=== PATIENT | female | born 1995 ===

== ENCOUNTER 2020-06-10 14:05 | Inpatient (IN) ==
[2020-06-10] MEDS ORDERED: MEPERIDINE 50 MG/1 ML VIAL IV PRN (15:31)
[2020-06-10] MEDS ORDERED: TERBUTALINE 1 MG/1 ML VIAL SUBCUT PRN (15:31)
[2020-06-10] MEDS ORDERED: ONDANSETRON 4 MG/2 ML VIAL IV PRN ×2 (15:32→23:29)
[2020-06-10] MEDS ORDERED: LACTATED RINGERS 500 ML IV ONE (16:00)
[2020-06-10] MEDS ORDERED: LACTATED RINGERS 1,000 ML IV ONE ×2 (16:07→19:38)
[2020-06-10] MEDS ORDERED: LACTATED RINGERS 1,000 ML IV SCH ×2 (18:00→19:30)
[2020-06-10] MEDS ORDERED: OXYTOCIN/LR 20 UNIT/1,000 ML BAG IV SCH (19:30)
[2020-06-10] MEDS ORDERED: AMPICILLIN INJ 2,000 MG in SODIUM CHLORIDE 0.9% 100 ML IV ONE (19:37)
[2020-06-10] MEDS ORDERED: FAMOTIDINE 20 MG/2 ML VIAL IV ONE (19:38)
[2020-06-10] MEDS ORDERED: hydrOXYzine HCL 25 MG/1 ML VIAL IM PRN (19:38)
[2020-06-10] MEDS ORDERED: CITRIC ACID/SODIUM CITRATE 30 ML UDCUP PO ONE (19:38)
[2020-06-10] MEDS ORDERED: ePHEDrine 50 MG/ML VIAL IV PRN (19:38)
[2020-06-10] MEDS ORDERED: diphenhydrAMINE 50 MG/1 ML VIAL IV PRN ×2 (19:38)
[2020-06-10] MEDS ORDERED: ePHEDrine 50 MG/ML VIAL ONE (19:46)
[2020-06-10] MEDS ORDERED: BUTORPHANOL 2 MG/ML VIAL IV ONE (19:51)
[2020-06-10] MEDS ORDERED: fentaNYL 2 MCG/ROPIV 0.2% EPID 100 ML EPIDURAL SCH (20:00)
[2020-06-10 20:02] LABS: Basophils % 0.2 % (0.0-0.8); Eosinophils # 0.1 10*3/uL (0.0-0.87); Eosinophils % 0.8 % (0.00-10.9); Hematocrit 36.1 VOL% (35.7-47.0); Hemoglobin 12.3 GM/DL (12.0-16.0); Immature Granulocytes % 0.5 %; Immature Granulocytes Absolute 0.06 #; Lymphocytes # 2.2 10*3/uL (1.4-4.0); Lymphocytes % 17.2 % (21.3-54.2); Mean Corpuscular HGB Conc 34.1 GM/DL (32-36); Mean Platelet Volume 11.3 FL (9.6-12.0); Monocytes % 8.1 % (1.7-12.7); Neutrophils % 73.2 % (38.7-73.9); Platelet Count 256 T/CUMM (130-400); Red Cell Distribution Width 13.8 % (9.3-17.3); White Blood Count 12.9 T/CUMM (4-12)
[2020-06-10 20:14] LABS: Alanine Aminotransferase 14 U/L (13-56); Albumin 2.3 G/DL (3.4-5.0); Alkaline Phosphatase 198 U/L (45-117); Aspartate Amino Transferase 11 U/L (0-37); Bilirubin,Total < 0.39 MG/DL (0.2-1.0); Blood Urea Nitrogen 5 MG/DL (7-18); Calcium 8.7 MG/DL (8.5-10.1); Carbon Dioxide 23 MMOL/L (21-32); Estimated Glom Filtration Rate 164 ML/MIN; Glucose 116 MG/DL (74-106); Osmolality,Calculated 272.7 MOS/KG (273-304); Potassium 3.6 MMOL/L (3.5-5.1); Sodium 138 MMOL/L (136-145); Total Protein 6.7 G/DL (6.4-8.2)
[2020-06-10 22:26] LABS: Bilirubin,Urine Negative (Negative); Blood, Urine Small mg/dL (Negative); Glucose,Urine (UA) 150 mg/dL (Negative); Ketones,Urine Negative (Negative); Mucus,Urine Occasional /LPF (Occasional); Nitrite,Urine Negative (Negative); Protein,Urine Negative; RBC,Urine 7 /HPF (0-4); Squamous Epithelial Cell,Urine Occasional /HPF (0-10); Urine Appearance CLEAR (Clear); Urine Color Yellow (Yellow); Urine Specific Gravity 1.012 (1.001-1.035); Urine Urobilinogen < 2.0 EU/DL (0.2-1.0); WBC,Urine <1 /HPF (0-6)
[2020-06-10] MEDS ORDERED: LIDOCAINE 1% 50 ML VIAL ONE (22:29)
[2020-06-10] MEDS ORDERED: WITCH HAZEL PADS 100/JAR TOP PRN (23:29)
[2020-06-10] MEDS ORDERED: BISACODYL 10 MG SUPP RECTAL PRN (23:29)
[2020-06-10] MEDS ORDERED: MEASLES/MUMPS/RUBELLA VACCINE 0.5 ML VIAL SUBCUT ONE (23:29)
[2020-06-10] MEDS ORDERED: RHO(D) IMMUNE GLOBULIN 300 MCG SYRINGE IM ONE (23:29)
[2020-06-10] MEDS ORDERED: OXYTOCIN/LR 20 UNIT/1,000 ML BAG IV ONE (23:29)
[2020-06-10] MEDS ORDERED: HYDROCORTISONE 2.5% RECTAL CREAM 30 GM TUBE TOP PRN (23:29)
[2020-06-10] MEDS ORDERED: ACETAMINOPHEN 325 MG TABLET PO PRN (23:29)
[2020-06-10] MEDS ORDERED: BENZOCAINE 20%/MENTHOL 0.5% SPRAY 56 GM CAN TOP PRN (23:29)
[2020-06-10] MEDS ORDERED: LANOLIN 50% CREAM 0.3 OZ TUBE TOP PRN (23:29)
[2020-06-10] MEDS ORDERED: DIPH/TET/ACEL PERT BOOSTER VACCINE 0.5 ML VIAL IM ONE (23:29)
[2020-06-10] MEDS: IBUPROFEN 800 MG TABLET PO PRN (23:41)
[2020-06-10] MEDS: oxyCODONE/ACETAMINOPHEN 5-325 MG TABLET PO PRN (23:42)
[2020-06-10] MEDS ORDERED: AMPICILLIN INJ 1,000 MG in SODIUM CHLORIDE 0.9% 100 ML IV SCH (23:45)
[2020-06-10 23:46] LABS: Cord Venous Blood HCO3 19.5 MMOL/L; Cord Venous Blood PO2 26.2
[2020-06-11] MEDS: IBUPROFEN 800 MG TABLET PO PRN ×2 (05:37→14:26)
[2020-06-11] MEDS: oxyCODONE/ACETAMINOPHEN 5-325 MG TABLET PO PRN ×2 (05:37→15:57)
[2020-06-11 05:45] LABS: Basophils % 0.2 % (0.0-0.8); Eosinophils % 0.1 % (0.00-10.9); Hematocrit 35.7 VOL% (35.7-47.0); Hemoglobin 12.3 GM/DL (12.0-16.0); Immature Granulocytes % 0.5 %; Immature Granulocytes Absolute 0.08 #; Lymphocytes # 2.2 10*3/uL (1.4-4.0); Lymphocytes % 13.2 % (21.3-54.2); Mean Corpuscular HGB Conc 34.5 GM/DL (32-36); Mean Corpuscular Volume 86.7 FL (87-102); Monocytes % 7.3 % (1.7-12.7); Neutrophils % 78.7 % (38.7-73.9); Platelet Count 270 T/CUMM (130-400); Red Blood Count 4.12 MC/CUMM (3.8-5.5); Red Cell Distribution Width 13.6 % (9.3-17.3); White Blood Count 16.4 T/CUMM (4-12)
[2020-06-11] MEDS: DOCUSATE SODIUM 100 MG CAPSULE PO SCH ×2 (08:18→21:36)
[2020-06-12] MEDS: oxyCODONE/ACETAMINOPHEN 5-325 MG TABLET PO PRN (04:39)
[2020-06-12 07:56] VITALS: BP 137/70
[2020-06-12] MEDS: DOCUSATE SODIUM 100 MG CAPSULE PO SCH (08:23)
== END 2020-06-12 15:00 | disposition home or self-care (01) | DRG 807 ==
LOC: N.LDOUT 14:05 → N.LD 14:20 → N.OB 06-11 02:53
PROVIDERS: ADMIT Specialist; ATTEND Specialist